=== PATIENT | male | born 1965 | race Hispanic/Latino ===

== ENCOUNTER 2017-01-08 20:28 | Emergency (ER) | payer OTHER ==
[2017-01-08 20:33] VITALS: BP 148/95; PULSE 101; RESP 18; TEMP 98.1; O2SAT 99
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
== END 2017-01-09 00:10 | disposition home or self-care (01) ==
LOC: H.ER 20:28
DX: S16.1XXA Strain of muscle, fascia and tendon at neck level, initial encounter (principal); M54.9 Dorsalgia, unspecified; S09.90XA Unspecified injury of head, initial encounter; V43.52XA Car driver injured in collision with other type car in traffic accident, initial encounter; Y93.9 Activity, unspecified